=== PATIENT | female | born 1980 | race Caucasian/White ===

== ENCOUNTER 2017-06-27 19:27 | Emergency (ER) | payer OTHER ==
[2017-06-27 19:35] VITALS: BP 147/86; PULSE 85; RESP 18; TEMP 98.8; O2SAT 97
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
== END 2017-06-27 19:57 | disposition home or self-care (01) ==
DX: S00.81XA Abrasion of other part of head, initial encounter (principal); V49.59XA Passenger injured in collision with other motor vehicles in traffic accident, initial encounter; Y92.410 Unspecified street and highway as the place of occurrence of the external cause